=== PATIENT | male | born 1970 | race Two or more races ===

== ENCOUNTER 2019-10-08 15:50 | Emergency (ER) | payer SELFPAY ==
[~2019-10-08] VITALS: Ht 167.6 cm; Wt 70.8 kg
[~2019-10-08 15:50] MED LIST: NAPR250T74
[2019-10-08 19:55] VITALS: BP 126/84
== END 2019-10-08 19:56 | disposition home or self-care (01) ==
LOC: ER 15:50
DX: S93.601A Unspecified sprain of right foot, initial encounter (principal); V86.59XA Driver of other special all-terrain or other off-road motor vehicle injured in nontraffic accident, initial encounter; Y93.89 Activity, other specified; Y92.89 Other specified places as the place of occurrence of the external cause; Y99.8 Other external cause status
CPT/HCPCS: 70450; 72125; 73630